=== PATIENT | male | born 1980 | race Caucasian/White ===

== ENCOUNTER 2020-08-05 14:25 | Emergency (ER) | payer BC ==
[~2020-08-05] VITALS: Ht 165.1 cm; Wt 63.4 kg
[2020-08-05 14:29] VITALS: BP 114/79
[2020-08-05] MEDS ORDERED: LIDOcaine 1% W/epiNEPHrine 1:200,000 10ml vial IJ ONE (14:45)
[2020-08-05] MEDS ORDERED: TETanus/Pertussis (Acell)/Diphther VAC/PF (Tdap-Adult) 0.5ml syringe IMVAC ONE (14:45)
[2020-08-05] MEDS ORDERED: ondansetron 4mg rapidly disintigrating tab PO ONE (14:45)
[2020-08-05] MEDS ORDERED: bacitracin 15gm ointment TP ONE (14:45)
[2020-08-05] MEDS ORDERED: HYDROcodone/acetaminophen 5mg/325mg tablet PO ONE (14:45)
[2020-08-05] MEDS ORDERED: CEPH250T PO (16:35)
[2020-08-05] MEDS ORDERED: IBUP-1984 PO (16:35)
== END 2020-08-05 16:47 | disposition home or self-care (01) ==
LOC: ER 14:25
DX: S81.012A Laceration without foreign body, left knee, initial encounter (principal); Z20.3 Contact with and (suspected) exposure to rabies; Z79.2 Long term (current) use of antibiotics; Z79.899 Other long term (current) drug therapy; V89.1XXA Person injured in unspecified nonmotor-vehicle accident, nontraffic, initial encounter; Y93.89 Activity, other specified; Y92.89 Other specified places as the place of occurrence of the external cause; Y99.8 Other external cause status
CPT/HCPCS: 12001; 73560; 73564; 90471; 90715; 99284

== ENCOUNTER 2020-08-13 08:32 | Emergency (ER) | payer BC ==
[~2020-08-13] VITALS: Ht 165.1 cm; Wt 62.9 kg
[~2020-08-13 08:32] MED LIST: CEPH250T PO
[2020-08-13 08:43] VITALS: BP 127/89
== END 2020-08-13 09:41 | disposition home or self-care (01) ==
LOC: ER 08:33
DX: S81.012D Laceration without foreign body, left knee, subsequent encounter (principal); Z79.899 Other long term (current) drug therapy; X58.XXXA Exposure to other specified factors, initial encounter; Y93.89 Activity, other specified; Y92.89 Other specified places as the place of occurrence of the external cause; Y99.8 Other external cause status
CPT/HCPCS: 99281